=== PATIENT | female | born 1950 | race African-American/Black ===

== ENCOUNTER 2018-04-23 08:29 | Inpatient (IN) | payer OTHER ==
[2018-04-23] VITALS (16 sets, daily range): BP systolic 127–180; BP diastolic 76–100
[~2018-04-23] VITALS: Ht 160 cm; Wt 98.4 kg
[~2018-04-23 08:29] MED LIST: ceFAZolin sod 2 GM in D5W 110 ML IVPB ONE
[2018-04-23] MEDS ORDERED: ACETAMINOPHEN-1 EAC1 ORAL (09:19)
[2018-04-23] MEDS ORDERED: OMEPRAZOLE10 M1 ORAL (09:19)
[2018-04-23] MEDS ORDERED: DYAZIDE1 CAP ORAL (09:19)
[2018-04-23] MEDS ORDERED: Zemuron 50mg/5ml Inj IV ONE (10:32)
[2018-04-23] MEDS ORDERED: Vancomycin 1gm inj IVPB ONE (10:34)
[2018-04-23] MEDS ORDERED: Gelfoam Size TOPIC ONE (10:35)
[2018-04-23] MEDS ORDERED: Bacitracin 50000 Units Vial ONE (10:35)
[2018-04-23] MEDS ORDERED: Thrombin 5000 units TOPIC ONE (10:35)
[2018-04-23] MEDS ORDERED: Bupivacaine w/Epi 0.5% 30ml Vial INJ ONE (10:35)
[2018-04-23] MEDS ORDERED: Lidocaine 1% Plain 30 ml INJ ONE (10:43)
[2018-04-23] MEDS ORDERED: fentaNYL 100 mcg/2 mL IV PRN (10:45)
[2018-04-23] MEDS ORDERED: oxyCODONE HCL/Acetaminophen 5/325mg ORAL PRN (10:45)
[2018-04-23] MEDS ORDERED: DiphenhydrAMINE 50mg/ml Inj IVP PRN (10:45)
[2018-04-23] MEDS ORDERED: Acetaminophen (Non formulary) 100 ML IV ONE (10:45)
[2018-04-23] MEDS ORDERED: Hydromorphone 0.5mg/0.5ml inj IVP PRN (10:45)
[2018-04-23] MEDS ORDERED: Metoclopramide 10mg/2ml Inj IVP PRN (10:45)
[2018-04-23] MEDS ORDERED: Atropine Sulfate 0.4mg/ml inj IVP PRN (10:45)
[2018-04-23] MEDS ORDERED: Meperidine 50mg/ml Inj(FOR RIGORS ONLY) IVP PRN (10:45)
[2018-04-23] MEDS ORDERED: Midazolam 2mg/2ml Inj IVP PRN (10:45)
[2018-04-23] MEDS ORDERED: Ketorolac 30mg Inj IV PRN ×2 (10:45)
[2018-04-23] MEDS ORDERED: LR 1000ml 1,000 ML IVLG SCH (10:45)
[2018-04-23] MEDS ORDERED: LORazepam Inj 2mg/ml 1ml IV PRN (10:45)
[2018-04-23] MEDS ORDERED: HYDROcodone/Acetamin 7.5/325 tab ORAL PRN ×2 (10:45→14:00)
[2018-04-23] MEDS ORDERED: Norco 5mg/325mg tab ORAL PRN ×2 (10:45→14:00)
--- NOTE | 2018-04-23 10:52 | Anethesia Preoperative Eval ---
Anesthesia Pre-op PMH/ROS General Date of Evaluation: Apr 23, 2018 Time of Evaluation: 11:06 Anesthesiologist: Carlee ASA Score: ASA 3 Mallampati Score Class I : Soft palate, uvula, fauces, pillars visible Class II: Soft palate, uvula, fauces visible Class III: Soft palate, base of uvula visible Class IV: Only hard plate visible Mallampati Classification: Class II Surgeon: Yaneth Diagnosis: Back Pain Surgical Procedure: L4-5, L5-S1 Microdiscetomy, Decompression Anesthesia History: none Family History: no anesthesia problems Allergies: Coded Allergies: No Known Allergies (Unverified , 04/23/18) Medications: see eMAR Patient NPO?: Yes NPO Date: Apr 22, 2018 NPO Time: 2330 Past Medical History Cardiovascular: Reports: HTN Gastrointestinal/Genitourinary: Reports: GERD Other: obesity - BMI 40 PSxH Narrative: Cholecystectomy Anesthesia Pre-op Phys. Exam Physician Exam Last Vital Signs Date Time Temp Pulse Resp B/P (MAP) Pulse Ox O2 Delivery O2 Flow Rate FiO2 04/23/18 09:04 Room Air 04/23/18 09:03 97.2 92 18 127/97 (107) 95 Constitutional: NAD Neurologic: CN 2-12 intact Cardiovascular: RRR Respiratory: CTA Gastrointestinal: S/NT/ND Airway Exam Mallampati Score: Class II MO: limited ROM: limited Teeth: missing, intact Anesthesia Pre-op A/P Risk Assessment & Plan Assessment: ASA 3 Plan: GA, SED, GlideScope Go Status Change Before Surgery: No Pre-Antibiotics Dru Grams Ancef IV Given Within 1 Hr of Incision: Yes Time Given: 11:26 Abner Bejarano MD Apr 23, 2018 10:52
--- NOTE | 2018-04-23 10:54 | Pre-Procedure Note/Attestation ---
Pre-Procedure Note/Attestation Complete Prior to Procedure Procedure Narrative: Right sided L45 and L5S1 microdecompression and possible microdiscectomies Attestation I attest that I discussed the nature of the procedure; its benefits; risks and complications; and alternatives (and the risks and benefits of such alternatives ), prior to the procedure, with the patient (or the patient's legal sales and service representative). I attest that, if there was a reasonable possibility of needing a blood transfusion, the patient (or the patient's legal sales and service representative) was given the [facility] standardized written summary, pursuant to the Niall Agustín Blood Safety Act ([place] Health and Safety Code # 1645, as amended). I attest that I re-evaluated the patient just prior to the surgery and that there has been no change in the patient's H&P, except as documented below: Waqar Wolfe MD Apr 23, 2018 10:54
[2018-04-23] MEDS ORDERED: Lidocaine 1% MPF 10mg/ml 5ml ONE (10:56)
[2018-04-23] MEDS ORDERED: Dexamethasone 4mg/ml vial ONE (10:56)
[2018-04-23] MEDS ORDERED: Sodium Chloride 10ml vial INJ ONE (10:56)
[2018-04-23] MEDS ORDERED: Propofol 1,000mg/ 100ml btl IV ONE (11:00)
[2018-04-23] MEDS ORDERED: NS Irrig 1000ml ONE (11:00)
[2018-04-23] MEDS ORDERED: Sterile Water Irrig 1000ml IRRIG ONE (11:00)
[2018-04-23] MEDS ORDERED: fentaNYL 100 mcg/2 mL IV ONE ×2 (11:01→13:07)
[2018-04-23] MEDS ORDERED: Ketamine 500mg Inj ONE (11:01)
[2018-04-23] MEDS ORDERED: LR 1000ml ONE (11:06)
--- NOTE | 2018-04-23 11:55 | Immediate Post-Op Evaluation ---
Immediate Post-Op Evalulation Immediate Post-Op Evalulation Procedure: L4-5, L5-S1 Microdiscetomy, Decompression Date of Evaluation: Apr 23, 2018 Time of Evaluation: 13:59 IV Fluids: 900 LR Blood Products: 0 Estimated Blood Loss: 15 Urinary Output: 430 Blood Pressure Systolic: 169 Blood Pressure Diastolic: 95 Pulse Rate: 96 Respiratory Rate: 16 O2 Sat by Pulse Oximetry: 98 Temperature (Fahrenheit): 97.4 Pain Score (1-10): 2 Nausea: No Vomiting: No Complications 0 Patient Status: awake, reacts, patent, extubated, none Hydration Status: adequate Dru Grams Ancef IV Given Within 1 Hr of Incision: Yes Time Given: 11:26 Abner Bejarano MD Apr 23, 2018 11:55
[2018-04-23] MEDS ORDERED: Glycopyrrolate 0.2mg/ml 1ml Vial ONE (13:21)
[2018-04-23] MEDS ORDERED: Neostigmine 1mg/ml 10ml Inj ONE (13:21)
--- NOTE | 2018-04-23 13:47 | Brief Operative Note ---
Immediate Post Operative Note Operative Note Pre-op Diagnosis: lumbar radiculopathy Post-op Diagnosis: same as pre-op Findings: consistent w/pre-op dx studies Surgeon: Yaneth Simulation Technician: Augusto Anesthesiologist: Nazario Anesthesia: general Specimen: none Complications: none Condition: stable Fluids: 1000cc Estimated Blood Loss: minimal - 15cc Drains: none Implant(s) used?: No Waqar Wolfe MD Apr 23, 2018 13:47
[2018-04-23] MEDS ORDERED: HYDROmorphone 1mg/ml Carpuject SUBQ PRN (14:00)
[2018-04-23] MEDS ORDERED: Naloxone 0.4mg/ml Inj IVP PRN (14:00)
[2018-04-23] MEDS ORDERED: HYDROmorphone 1mg/ml Carpuject IVP PRN (14:00)
--- NOTE | 2018-04-23 15:10 | Diagnostic Imaging Report ---
INDICATION: Pain, intraoperative TECHNIQUE: Intraoperative imaging Fluoroscopy time: 4.1 seconds Total dose: 2.02 mGy Total number of images: 2 COMPARISON: None FINDINGS: Intraoperative images demonstrate surgical needles projected posterior to what are presumably L4 and L5 vertebral bodies. Subsequent images demonstrate surgical tool projected posterior to the L5-S1 disc IMPRESSION: Intraoperative imaging, as described
[2018-04-23] MEDS: HYDROcodone/Acetamin 7.5/325 tab ORAL PRN ×2 (16:40→22:03)
[2018-04-23] MEDS: D5 1/2NS 1,000 ML IV SCH (16:43)
[2018-04-23] MEDS: Docusate 100mg cap ORAL SCH (17:48)
--- NOTE | 2018-04-23 18:51 | 48 Hour Post Anesthesia Eval ---
Post Anesthesia Evaluation Procedure: L4-5, L5-S1 Microdiscetomy, Decompression Date of Evaluation: Apr 23, 2018 Time of Evaluation: 18:50 Blood Pressure Systolic: 144 0: 87 Pulse Rate: 89 Respiratory Rate: 16 Temperature (Fahrenheit): 97.9 O2 Sat by Pulse Oximetry: 94 Airway: patent Nausea: No Vomiting: No Pain Intensity: 3 Hydration Status: adequate Cardiopulmonary Status: Stable Mental Status/LOC: patient returned to baseline Follow-up Care/Observations: 0 Post-Anesthesia Complications: 0 Follow-up care needed: ready to discharge Abner Bejarano MD Apr 23, 2018 18:51
--- NOTE | 2018-04-23 22:00 | Operative Note - Dictated ---
DATE OF OPERATION: 04/23/2018 PREOPERATIVE DIAGNOSES: 1. L4-L5 and L5-S1 disk bulge with stenosis. 2. Right lower extremity radiculopathy. POSTOPERATIVE DIAGNOSES: 1. L4-L5 and L5-S1 disk bulge with stenosis. 2. Right lower extremity radiculopathy. PROCEDURE PERFORMED: 1. L4-L5 and L5-S1 right-sided laminotomy, medial facetectomy, and foraminotomy. 2. Intraoperative use of microscope. 3. Intraoperative use of fluoroscopy for localization. SURGEON: Waqar Wolfe M.D. CLAM DREDGER: Gordon Casas M.D. ANESTHESIA: General endotracheal anesthesia. ANESTHESIOLOGIST: Abner Bejarano M.D. INTRAOPERATIVE FINDINGS: Lateral recess and foraminal stenosis at L4-L5 and L5-S1 on the right side. EBL: 15 mL. FLUIDS: 1000 mL of crystalloid. INDICATIONS: The is a pleasant female who failed nonoperative treatment and option for above treatment was given. Risks, alternatives, and benefits were discussed with the patient at length. Risks include, but are not limited to anesthesia and complications including , medical complications including liver, kidney, cardiopulmonary deficits, bleeding, infection, neurovascular injury, and nerve root injury as well as other complications. The patient understood and wished to proceed. OPERATIVE FINDING: Right-sided lateral recess and foraminal stenosis at L4-L5 and L5-S1 for the traversing and exiting nerve roots on the right side at L4-L5 and L5-S1. DESCRIPTION OF OPERATION: The patient was brought to the operating room, supine on a stretcher and subsequently appropriate IV lines were placed and 2 g of Ancef was administered. Anesthesia was induced. The patient was successfully intubated. Sequential compression devices were placed. Bone was placed under sterile conditions. The patient was turned over on the Luke frame table. All bony prominences were well padded and the abdomen was assured to lay freely. The L4-L5 and L5-S1 interspace was positively located with preoperative fluoroscopy and indelible marker was used to roberto the midline at the L4-L5 and L5-S1 levels. The patient was prepped and draped in the usual sterile fashion with chlorhexidine scrub, ChloraPrep, and Ioban draping. At this point, the intraoperatively sterilely draped microscope was brought into the field from skin incision to skin closure. The microscope was also used for microdissection of neural elements. At this point, an incision was carried out over the midline over L4-L5 and L5-S1. With monopolar cautery, the incision was carried out to the lamina on the right side at L4-L5 and L5-S1. The lateral joint facet capsule was well preserved and a radiopaque marker was placed at the lower pedicle level and the S1 pedicle was positively identified via lateral fluoroscopy and thus, the L4-L5 and L5-S1 levels were positively identified. Once this was accomplished, attention now was diverted to doing the laminotomy. With the use of a straight and curved curette, #2 through #5 Kerrison punches, and high-speed drill, an interlumbar laminotomy, medial facetectomy, and foraminotomy was accomplished at L5-S1 initially on the right side. There was stenosis in the lateral recess and the foramina, and impingement of the neural elements including the traversing and exiting L5 and S1 nerve roots. Once the ligamentum flavum was removed, the superior aspect of the superior facet of S1 was excised via Kerrison punch and complete decompression of the lateral recess and central canal foramina entailed, and complete decompression of the L5 and S1 nerves was done. At this point, Valsalva at 40 mmHg was done. There was no CSF leak. The floor of the canal was checked. There was a small disk bulge, which was not impinging on the neural elements at this point and thus a diskectomy was opted not to be done. Now retractors were changed to the L4-L5 level and with the same instruments including straight and curved curettes, #2 through #5 Kerrison punches, and high-speed drill, an interlumbar laminotomy, medial facetectomy, and excision of ligamentum flavum at L4-L5 was done and stenosis and impingement of the L4 and L5 nerve roots, exiting and traversing nerve roots were found and the complete decompression of the lateral recess and foramina entailed the superior aspect of the superior facet of L5 was removed and complete decompression of the exiting and traversing nerve roots was accomplished. The floor of the canal was checked. There was a small disk bulge, which did not further impinging onto the neural elements. At this point, a Valsalva 40 mmHg was done. There was no CSF leak and at this point, attention was diverted to closure. The wound was copiously irrigated with triple antibiotic solution. Hemostasis was achieved with Gel-Foam, thrombin, and FloSeal and now attention was diverted to closure. A 1 g of vancomycin powder was placed subfascially and suprafascially, and dorsal lumbar fascia was closed with #1 Vicryl sutures in a watertight interrupted fashion. The subdermal and subcuticular layers were closed with 2-0 Vicryl sutures. The skin was closed with Dermabond. Sterile dressing tape was placed. All sponge, needle, and instrument counts were correct. There were no complications during the case. EBL was 15 mL. A sterile dressing tape was placed. The patient was turned supine, was extubated in stable condition, was taken to the recovery room in stable condition, and was found to be neurovascularly intact. The patient was admitted to the hospital. Waqar Wolfe M.D. DR: MARLA JOB#: [id number] CC:
[2018-04-23] MEDS: ceFAZolin sod 1 GM in D5W 55 ML IV SCH (22:02)
[2018-04-24 00:03] VITALS: BP 107/69
[2018-04-24] MEDS: D5 1/2NS 1,000 ML IV SCH ×2 (02:25→08:06)
[2018-04-24 04:02] VITALS: BP 110/70
[2018-04-24] MEDS: ceFAZolin sod 1 GM in D5W 55 ML IV SCH ×2 (04:56→14:17)
[2018-04-24 08:00] VITALS: BP 133/69
[2018-04-24] MEDS: Docusate 100mg cap ORAL SCH ×2 (08:06→18:12)
[2018-04-24 12:00] VITALS: BP 136/79
[2018-04-24 16:00] VITALS: BP 162/95
--- NOTE | 2018-04-24 18:11 | General Progress Note ---
Subjective Allergies: Coded Allergies: No Known Allergies (Unverified , 04/23/18) Subjective leg pain completely resolved. min lbp avss a and o times 3 dressing cdi 5/5 motor in the le adn the ue calves soft and nt doing well dc tonight oob followup in 7 days Objective Last 24 Hour Vital Signs Date Time Temp Pulse Resp B/P (MAP) Pulse Ox O2 Delivery O2 Flow Rate FiO2 04/24/18 16:00 97.8 19 162/95 (117) 97 04/24/18 12:00 97.5 18 136/79 (98) 93 04/24/18 09:00 Nasal Cannula 3.0 Nasal Cannula 3.0 04/24/18 08:00 98.6 86 18 133/69 (90) 96 04/24/18 04:02 98.1 60 20 110/70 (83) 95 04/24/18 00:03 98.8 63 18 107/69 (82) 94 04/23/18 22:33 98.2 04/23/18 20:24 Nasal Cannula 3.0 Nasal Cannula 3.0 04/23/18 20:00 98.2 76 18 144/86 (105) 94 04/23/18 18:51 89 16 94 04/23/18 18:45 98.1 90 16 166/97 (120) 94 Intake and Output 04/23/18 04/24/18 18:59 06:59 Intake Total 1800 ml 1400 ml Output Total 740 ml 2600 ml Balance 1060 ml -1200 ml Intake Oral 240 ml IV Total 1800 ml 1160 ml Output Urine Total 725 ml 2600 ml Estimated Blood Loss 15 ml # Voids 1 2 Height (Feet): 5 Height (Inches): 3.00 Weight (Pounds): 217 Waqar Wolfe MD Apr 24, 2018 18:11
[2018-04-24] MEDS ORDERED: NORCO 5-325 TA1 EACH ORAL (18:33)
[2018-04-24] MEDS ORDERED: D5 1/2NS 1000ml IV ONE (19:44)
--- NOTE | 2018-04-28 15:44 | Discharge Summary ---
Discharge Summary Hospital Course Date of Admission Apr 23, 2018 at 08:29 Date of Discharge Apr 24, 2018 at 19:45 Admitting Diagnosis Lumbar Radiculopathy Reason for Hospitalization: elective surgery HPI Fatmata Rincon is a 67 year old female who was admitted on Apr 23, 2018 at 08: 29 for L4-L5 and L5-S1 disk bulge with stenosis. with Right lower extremity radiculopathy.natalieetn was admitted for elective surgery. Procedures s/p 04/23/[address] Wolfe 1. L4-L5 and L5-S1 right-sided laminotomy, medial facetectomy, and foraminotomy. 2. Intraoperative use of microscope. 3. Intraoperative use of fluoroscopy for localization. Hospital Course status post surgery course of recovery uneventful initially IV fluids s/p perioperative antibiotics neurovascular status closely monitored, stable incision clean dry and intact pain management addressed ; pain controlled hemodynamically stable ambulated with PT fall precautions maintained; safe for ambulation tolerated diet , IV fluids discontinued GI prophylaxis provided antiemetics were on board as needed voided freely bowel regimen instituted patient was stable for discharge discharge instructions provided regarding activity allowed, body mechanics follow up with surgeon in 7 days FINAL DIAGNOSES 1. L4-L5 and L5-S1 disk bulge with stenosis. 2. Right lower extremity radiculopathy. 3 s/p L4-5, L5-S1 Microdiscectomy, Decompression Discharge Medications Continued Medications: Hydrocodone Bit/Acetaminophen 5-325* ([place] 5-325*) 1 Each Tablet 1 TAB ORAL Q6H PRN for For Pain, #40 TAB 0 Refills (This prescription has been renewed) Discharge Condition Upon Discharge: stable Discharge Disposition Patient was discharged to Home () Discharge Instructions Discharge Instructions Special Instructions I have been assigned to complete a D/C Summary on this account. I was not involved in the patient management Nikki Martínez PAVING SUPERVISOR Apr 28, 2018 15:43
== END 2018-04-24 19:45 | disposition home or self-care (01) | DRG 517 ==
LOC: SDSOVERFLO 08:29 → 3E 15:12
PROC: 01NB0ZZ Release Lumbar Nerve, Open Approach (ICD-10-PCS; principal; 2018-04-23 10:30)
DX: M51.16 Intervertebral disc disorders with radiculopathy, lumbar region (principal); M51.27 Other intervertebral disc displacement, lumbosacral region; M48.061 Spinal stenosis, lumbar region without neurogenic claudication; M48.07 Spinal stenosis, lumbosacral region; Z87.891 Personal history of nicotine dependence; E66.9 Obesity, unspecified
CPT/HCPCS: 72020; 76001; 87081; 94003; 94150; J2405; J2710